=== PATIENT | male | born 1945 | race Caucasian/White ===

== ENCOUNTER → 2017-06-24 15:31 | Outpatient (CLI) | payer MEDICARE, OTHER | END | disposition home or self-care (01) | LOC: D.CT 15:31 | DX: N20.0 Calculus of kidney (principal) ==

== ENCOUNTER 2017-08-13 07:26 | Day surgery (SDC) | payer MEDICARE, OTHER ==
[~2017-08-13] VITALS: Ht 175.3 cm; Wt 102.1 kg
--- NOTE | ~2017-08-13 | OP ---
PATIENT NAME: JYOTHI HICKMAN MEDICAL RECORD: [id number] :47 LOCATION:D.OPS ADMISSION DATE: SURGEON: JOSE JAMES MD DATE OF OPERATION: 08/13/2017 PREOPERATIVE DIAGNOSES: 1. Gallstones. 2. Hypertension. POSTOPERATIVE DIAGNOSES: 1. Hhtkx-xz-nuvsqsf cholecystitis with gallstones. 2. Hypertension. PROCEDURE: Laparoscopic cholecystectomy. SURGEON: Jose James MD REPORT OF PROCEDURE: The patient's abdomen was prepped and draped in sterile fashion. A cutdown was made on the superior aspect of the umbilicus. Vicryls #0 were placed on the fascia bilaterally and the fascia was incised with #15 blade. I then bluntly entered the peritoneal cavity and placed a 12-mm Keya port. Under direct visualization, a 5-mm trocar was placed in the epigastrium and two more 5-mm trocars were placed in the right subcostal region. The gallbladder was grasped and elevated. There was noted to have some uxamn-rb-iqctfch inflammatory changes as the gallbladder was noted to be contracted but swollen. We dissected through the tissues and was able to eventually find the cystic artery and cystic duct. These were clipped proximally and distally and ligated in standard fashion. The gallbladder was then taken off the liver bed using electrocautery and placed into an Endo Catch bag. The right upper quadrant was irrigated out and any bleeding sources were treated with electrocautery. At this point, the ports and insufflation were then removed and the gallbladder was taken out through the umbilicus. The umbilical fascia was closed with interrupted #0 Vicryls times 3. The wounds were irrigated out with normal saline and infused with 10 mL of 0.25% Marcaine with epinephrine. The skin incisions were all closed with subcutaneous 5-0 Monocryl and dressed appropriately. COMPLICATIONS: None. CONDITION: Stable. ANESTHESIA: General endotracheal and local. BLOOD LOSS: Minimal. TRANSINT:[id number] Voice Confirmation ID: [id number] DOCUMENT ID: [id number] OPERATIVE REPORT [id number] JYOTHI HICKMAN JOSE JAMES MD CC: ALICIA ISRAEL MD [id number] DICTATION DATE: 08/13/17 1058 TECHNICAL ACCOUNT MANAGER: 08/13/17 1136 [place] [address]
[~2017-08-13 07:26] MED LIST: ASPIRIN EC81 M1 PO; CENTRUM MEN'S1 EACH PO; CHLORTHALIDONE25 MG PO; FIBER LAXATIVE500 MG PO; FLOMAX0.4 MG PO; K-TAB10 MEQ PO; LOTREL 10-40 M1 EACH PO; ZEBETA5 MG PO
[2017-08-13 08:09] VITALS: BP 141/69; Ht 175.3 cm; Wt 102.1 kg
[2017-08-13 08:50] LABS: BASOPHILS 0.2 % (0-2); EOSINOPHILS 2.9 % (0-7); HEMOGLOBIN 16.1 g/dL (13.5-17.5); IMMATURE GRANULOCYTES 1.8 % (0-5); LYMPHOCYTES 15.2 % (15-50); MCH 30.9 pg (26.0-34.0); MCHC 34.3 g/dL (31.0-37.0); MCV 90.2 fL (80.0-100.0); MONOCYTES 11.4 % (2-11); NEUTROPHILS 68.5 % (40-80); PLATELET COUNT 191 10x3/uL (130-400); RBC 5.21 10x6/uL (4.20-6.10); WBC 9.4 10x3/uL (4.8-10.8)
[2017-08-13 09:02] LABS: ANION GAP 12.9 mmol/L (8-16); CARBON DIOXIDE 27.3 mmol/L (21.0-32.0); CREATININE - SERUM 1.1 mg/dL (0.6-1.3); POTASSIUM - SERUM 3.2 mmol/L (3.5-5.1)
[2017-08-13] MEDS ORDERED: HYDROCODONE-APA1 TAB PO (10:54)
--- NOTE | 2017-08-13 13:50 | NUR ---
PATIENT AMBULATES TO BATHROOM AND VOIDS LARGE AMOUNT IN TOILET, NO UNSTEADINESS WITH AMBULATING. RIGHT HAND PIV DC'D WITH TIP INTACT. PATIENT DRESSING IN PERSONAL CLOTHING WITH SPOUSE PROVIDING STAND-BY ASSISTANCE
--- NOTE | 2017-08-13 14:10 | NUR ---
DISCHARGE INSTRUCTIONS REVIEWED WITH PATIENT AND SPOUSE, DISCHARGE HOME VIA WHEELCHAIR TO PRIVATE VEHICLE WITH SPOUSE
== END 2017-08-13 14:10 | disposition home or self-care (01) ==
LOC: D.OPS 07:26 → D.PAN 07:30 → D.OPS 07:30
PROVIDERS: Surgery
DX: K80.12 Calculus of gallbladder with acute and chronic cholecystitis without obstruction (principal); I10 Essential (primary) hypertension; K21.9 Gastro-esophageal reflux disease without esophagitis; Z01.812 Encounter for preprocedural laboratory examination

== ENCOUNTER 2017-11-21 07:04 | Day surgery (SDC) | payer MEDICARE, OTHER ==
[~2017-11-21] VITALS: Ht 175.3 cm; Wt 101.6 kg
--- NOTE | ~2017-11-21 | OP ---
PATIENT NAME: JYOTHI HICKMAN MEDICAL RECORD: [id number] :47 LOCATION:D.OPS ADMISSION DATE: SURGEON: MARCIAL BECKFORD MD DATE OF OPERATION: 11/21/2017 SURGEON: Marcial Beckford MD ANESTHESIA: MAC. ANESHTHESIOLOGIST: Sandra Nunez CRNA PREOPERATIVE DIAGNOSIS: Right lower pole renal stone, 6 mm. POSTOPERATIVE DIAGNOSIS: Right lower pole renal stone, 6 mm. PROCEDURE: Right extracorporeal shockwave lithotripsy times 3000 shocks. FINDINGS: Radiodense right lower pole 6 mm stone. ESTIMATED BLOOD LOSS: None. CLINICAL HISTORY: This is a 72-year-old male with a right lower pole 6-mm stone, which she wishes to have treated. Earlier today, he had a right ureteral stent inserted. At this moment, he comes to have lithotripsy. Since he was already given Ancef 2 grams IV at the time of ureteral stent insertion, no further antibiotics were given to him for lithotripsy. DESCRIPTION OF PROCEDURE: The patient was placed on the treatment table. The stone was visualized and targeted in 2 planes. 3000 shocks were given to the stone and it was seen to break up. The patient was then taken to the recovery room. The patient will be going home today. He will be given a strainer in order to catch any stone particles that pass out. I will see him in followup in 2 weeks' time with a KUB to determine if the kidney is stone free. If he is stone free, then we can remove the stent at that time. TRANSINT:[id number] Voice Confirmation ID: [id number] DOCUMENT ID: [id number] MARCIAL BECKFORD MD at 1540 CC: [id number] DICTATION DATE: 11/21/17 1312 ACQUISITION CONSULTANT: 11/21/17 1436 [facility] 11/21/17 [place] [id number] [place] [id number]
--- NOTE | ~2017-11-21 | OP ---
PATIENT NAME: JYOTHI HICKMAN MEDICAL RECORD: [id number] :47 LOCATION:D.OPS ADMISSION DATE: SURGEON: MARCIAL BECKFORD MD DATE OF OPERATION: 11/21/2017 DATE OF SURGERY: 11/21/2017 SURGEON: Marcial Beckford MD ANESTHESIA: MAC by Loida Gracia CRNA PREOPERATIVE DIAGNOSIS: Right lower pole renal stone, 6 mm. POSTOPERATIVE DIAGNOSIS: Right lower pole renal stone, 6 mm. PROCEDURES: Cystoscopy, right ureteral stent insertion 6-Icelandic x 24 cm with string attached. COMPLICATIONS: None. BLOOD LOSS: None. FINDINGS: Radiodense right lower pole 6 mm stone noted on fluoroscopy. Enlarged prostate with trilobar hyperplasia. Trabeculated bladder without bladder tumors. Single ureteral orifices bilaterally. CLINICAL HISTORY: This is a 72-year-old male with a prior history of kidney stones. When he had imaging, he was found to have cholelithiasis as well as a large right renal stone in the lower pole. The renal stone on the right side is 6 mm. He also has a 2 mm left renal stone. He was initially referred to Dr. Raygoza to have a laparoscopic cholecystectomy performed. He comes now to have the right renal stone treated. Today, he is having a right ureteral stent inserted and then he will have a right ESWL. Initially, the patient did not want a stent, but the time for the procedure approached, he changed his mind and he requested insertion of a stent. He is not allergic to any medications. He was given Ancef 2 grams IV employee relations consultant to the OR. DESCRIPTION OF PROCEDURE: The patient was given IV sedation. He was placed in the dorsal lithotomy position and prepped and draped. Uro-Jet lidocaine jelly was inserted into the urethra. A 21-Icelandic cystoscope with 30-degree lens was used for visualization. Cystoscopic findings were as outlined above. A Sensor wire was placed into the right ureteral orifice up to the right renal pelvis level. Over the wire, we inserted the ureteral stent. Once the stent was in correct position, the wire was entirely withdrawn. The distal end of the stent was pushed into the bladder using a pusher. The string on the distal end of the stent is maintained. It hangs out of the urethra. It was tied to itself in a knot and cut shorter. The scope was entirely removed after draining the bladder. The patient will then be transferred to the lithotripsy unit to have the stone treated. TRANSINT:[id number] Voice Confirmation ID: [id number] DOCUMENT ID: [id number] OPERATIVE REPORT [id number] JYOTHI HICKMAN ROBERT S MD at 1307 CC: [id number] DICTATION DATE: 11/21/17 1211 VALVE INSERTER: 11/21/17 1302 [address] [place] [id number] [place] [id number]
[~2017-11-21 07:04] MED LIST changes: +HYDROCODONE-APA1 TAB PO
[2017-11-21 07:50] VITALS: BP 140/65; Ht 175.3 cm; Wt 101.6 kg
[2017-11-21 08:42] LABS: HEMATOCRIT 47.4 % (42.0-54.0); HEMOGLOBIN 15.9 g/dL (13.5-17.5); MCH 30.3 pg (26.0-34.0); MCHC 33.5 g/dL (31.0-37.0); MCV 90.3 fL (80.0-100.0); MEAN PLATELET VOLUME 9.8 fL (7.4-10.4); RBC 5.25 10x6/uL (4.20-6.10); RDW 13.7 % (11.5-14.5); WBC 9.7 10x3/uL (4.8-10.8)
[2017-11-21 08:54] LABS: ANION GAP 11.1 mmol/L (8-16); CARBON DIOXIDE 29.7 mmol/L (21.0-32.0); CREATININE - SERUM 1.2 mg/dL (0.6-1.3); POTASSIUM - SERUM 3.8 mmol/L (3.5-5.1)
== END 2017-11-21 14:20 | disposition home or self-care (01) ==
LOC: D.OPS 07:04 → D.PAN 09:30 → D.OPS 13:30
PROVIDERS: Anesthesiology
DX: N20.0 Calculus of kidney (principal); N40.0 Benign prostatic hyperplasia without lower urinary tract symptoms; Z87.442 Personal history of urinary calculi; Z01.812 Encounter for preprocedural laboratory examination

== ENCOUNTER → 2017-11-29 10:03 | Outpatient (CLI) | payer MEDICARE, OTHER ==
[2017-11-21 07:50] VITALS: BMI 33.1
== END | disposition home or self-care (01) ==
LOC: D.RAD 10:00
DX: N20.0 Calculus of kidney (principal)

== ENCOUNTER → 2018-10-31 15:43 | Outpatient (CLI) | payer MEDICARE, OTHER ==
[2017-11-21 07:50] VITALS: BMI 33.1
== END | disposition home or self-care (01) ==
LOC: D.LABREF 15:43
DX: R97.20 Elevated prostate specific antigen [PSA] (principal)

== ENCOUNTER 2018-12-02 05:25 | Day surgery (SDC) | payer MEDICARE, OTHER ==
[2017-11-21 07:50] VITALS: Ht 175.3 cm; Wt 99.8 kg
[2018-12-01 12:00] LABS: HEMOGLOBIN 17.3 g/dL (13.5-17.5); MCH 30.2 pg (26.0-34.0); MCHC 33.9 g/dL (31.0-37.0); MCV 89.2 fL (80.0-100.0); MEAN PLATELET VOLUME 9.8 fL (7.4-10.4); RBC 5.72 10x6/uL (4.20-6.10); RDW 13.5 % (11.5-14.5); WBC 12.6 10x3/uL (4.8-10.8)
[~2018-12-02] VITALS: Ht 175.3 cm; Wt 99.8 kg
[2018-12-02 06:06] VITALS: BP 121/64; BMI 32.5
--- NOTE | 2018-12-02 09:06 | NUR ---
0900 STATES VOIDED URINE WHILE UP IN BATHROOM & NO BLOOD NOTED IN URINE. IV DC'ED WITH CATH INTACT. NO BLEEDING @ IV SITE. DRESSING. Yuliana LOCKWOOD R.N.
--- NOTE | 2018-12-02 09:35 | NUR ---
0915 DRESSED, AWAKE, & ALET. GIVEN DISCHARGE INFORMATION INCLUDING, MED REC, RTC APPT., [facility] OUTPATIENT DISCHARGE INSTRUCTIONS, & PROSTATE BIOPSY DISCHARGE INSTRUCTIONS. PT VOICED UNDERSTANDING. NO QUESTIONS. GIVEN ICE PACK. TO PRIVATE CAR PER WHEELCHAIR BY VOLUNTEER. HOME WT MRS. SORTO. Yuliana LOCKWOOD R.N.
--- NOTE | 2018-12-02 10:01 | OP ---
PATIENT NAME: JYOTHI HICKMAN MEDICAL RECORD: [id number] :47 LOCATION:D.OPS ADMISSION DATE: SURGEON: JADA BECKFORD MD DATE OF OPERATION: 12/02/2018 SURGEON: Jada Beckford MD ANESTHESIA: TIVA by Dr. Sin Barnett. DIAGNOSIS: Elevated PSA of 8.6 in July 2018. PROCEDURE: Transrectal ultrasound and prostate biopsy. FINDINGS: A 84.7-gram prostate with internal hypoechoic areas and intraprostatic stones. BLOOD LOSS: None. CLINICAL HISTORY: This is a 73-year-old male, who has obstructive BPH. He has been on finasteride and tamsulosin for one year. He has significant obstructive voiding symptoms. His PSA has previously been in the normal range, but in July of 2018, it abhi to 8.6. He has previously had a prostate biopsy by Dr. Waggoner several years ago and the pathology was benign. He comes today to have the biopsy repeated now. He is not allergic to any medications. He was given Ancef 2 grams IV operations support representative to the OR. DESCRIPTION OF PROCEDURE: The patient was given IV sedation. He was then placed into the dorsal lithotomy position and prepped. The transrectal ultrasound probe was introduced and prostate size measurements were obtained. He has quite an enlarged prostate. Sextant biopsies were obtained with at least 3 cores from each sextant. Once all the specimens were obtained, the procedure was terminated. I will see the patient next week in followup to review the pathology results with him. TRANSINT:[id number] Voice Confirmation ID: [id number] DOCUMENT ID: [id number] JADA BECKFORD MD at 1001 CC: [id number] DICTATION DATE: 12/02/18828 MARKETING LIAISON: 12/02/18 0958 [facility] 12/02/18 [place] [id number]
== END 2018-12-02 09:15 | disposition home or self-care (01) ==
LOC: D.OPS 05:25 → D.PAN 08:25 → D.OPS 08:25
PROVIDERS: Anesthesiology
DX: R97.20 Elevated prostate specific antigen [PSA] (principal); N40.1 Benign prostatic hyperplasia with lower urinary tract symptoms; N13.8 Other obstructive and reflux uropathy; Z01.812 Encounter for preprocedural laboratory examination